=== PATIENT | female | born 1960 | race Caucasian/White ===

== ENCOUNTER → 2017-08-31 | Outpatient (CLI) | payer OTHER ==
[~2017-08-31] MED LIST: PRM625 PO; PROM25TA PO
[2017-08-31 10:08] LABS: BASO % 0.4 %; BASO ABS # 0.03 K/uL (0-0.2); EOS % 4.9 %; EOS ABS # 0.34 K/uL (0-0.5); HEMATOCRIT 37.6 % (37-47); HEMOGLOBIN 12.4 g/dL (12.0-16.0); IG# 0.01 K/uL (0.00-0.02); LYMPH % 40.2 %; MEAN CELL VOLUME 89.3 fL (80-100); MEAN CORPUSCULAR HEMOGLOBIN 29.5 pg (25-34); MEAN PLATELET VOLUME 10.2 fL (7.4-10.4); MONO % 5.5 %; MONO ABS # 0.38 K/uL (0.11-0.59); NEUT % 48.9 %; PLATELET COUNT 308 K/uL (130-400); RED CELL DISTRIBUTION WIDTH CV 13.8 % (11.5-14.5); RED CELL DISTRIBUTION WIDTH SD 45.2 fL (36.4-46.3); WHITE BLOOD COUNT 6.96 K/uL (4.8-10.8)
== END | disposition home or self-care (01) ==
LOC: C.LAB1850 09:06
PROVIDERS: ATTEND Nurse Practitioner Adult Health
DX: J45.909 Unspecified asthma, uncomplicated (principal); G25.81 Restless legs syndrome

== ENCOUNTER → 2017-10-04 | Outpatient (CLI) | payer OTHER ==
--- NOTE | 2017-10-04 09:24 | DIAGNOSTIC IMAGING REPORT ---
PELVIS/BILATERAL HIP 2 VIEWS CLINICAL HISTORY: 719.45,M25.551,M25.552 pain COMPARISON STUDY: None FINDINGS: Normal study. Hips are symmetric. No acute bony abnormality. Sacral foramina are symmetric. IMPRESSION: Normal study The above report was generated using voice recognition software. It may contain grammatical, syntax or spelling errors. Electronically signed by: Tone Oliva M.D. 10/04/2017 9:23 AM Dictated Date/Time: 10/04/2017 9:22 AM
[2017-10-04 09:53] LABS: BLOOD UREA NITROGEN 14 mg/dl (7-18); CALCIUM 8.7 mg/dl (8.5-10.1); CARBON DIOXIDE 28 mmol/L (21-32); CREATININE 0.81 mg/dl (0.60-1.20); GLUCOSE 88 mg/dl (70-99); SODIUM 137 mmol/L (136-145)
[2017-10-04 10:04] LABS: CHOLESTEROL 231 mg/dl (0-200); LDL CHOLESTEROL CALCULATED 142 mg/dl
== END | disposition home or self-care (01) ==
LOC: C.LAB1850 08:42
PROVIDERS: ATTEND Nurse Practitioner Adult Health
DX: M25.551 Pain in right hip (principal); M25.552 Pain in left hip

== ENCOUNTER → 2017-12-19 | Outpatient (CLI) | payer OTHER ==
--- NOTE | 2017-12-20 14:22 | MAMMOGRAPHY REPORT ---
BILATERAL DIGITAL SCREENING MAMMOGRAM TOMOSYNTHESIS WITH CAD: 12/19/2017 CLINICAL HISTORY: Routine screening. Patient has no complaints. TECHNIQUE: Breast tomosynthesis in addition to standard 2D mammography was performed. Current study was also evaluated with a Computer Aided Detection (CAD) system. COMPARISON: Comparison is made to exams dated: 05/12/2016 mammogram, 02/24/2014 mammogram, 02/20/2013 mammogram, 11/23/2010 mammogram - [facility], 02/17/2009, and 11/26/2004 mammogram - [facility]. BREAST COMPOSITION: The tissue of both breasts is almost entirely fatty. FINDINGS: The parenchymal pattern is unchanged. No developing mass, architectural distortion or clus ter of suspicious microcalcifications is seen in either breast. IMPRESSION: ACR BI-RADS CATEGORY 2: BENIGN There is no mammographic evidence of malignancy. A 1 year screening mammogram is recommended. The pa tient will receive written notification of the results. Approximately 10% of breast cancers are not detected with mammography. A negative mammographic report should not delay biopsy if a clinically suggestive mass is present. Dianne Naik M.D. ay/:12/19/2017 20:08:16 Log Processor Operator: Daylin HAYWOOD(Padilla)(Samuel), [facility] letter sent: Normal 1/2 BI-RADS Code: ACR BI-RADS Category 2: Benign
== END | disposition home or self-care (01) ==
LOC: C.MAMM 11:49
PROVIDERS: ATTEND Nurse Practitioner Adult Health
DX: Z12.31 Encounter for screening mammogram for malignant neoplasm of breast (principal)

== ENCOUNTER 2024-04-08 05:08 | Observation (INO) ==
--- NOTE | 2024-02-06 12:02 | PAT Medication Instructions ---
Medication Instructions Date of Service February 06, 2024 Home Medications Medication Instructions Recorded ipratropium 0.5 mg-albuterol 3 mg 3 ml inhalation Q6H PRN wheezing 12/22/20 (2.5 mg base)/3 mL nebulization #15 mL soln albuterol sulfate 90 mcg/actuation 2 puff inhalation QID PRN 12/23/20 aerosol inhaler (Ventolin HFA) shortness of breath or wheezing #2 Inhalers epinephrine 0.3 mg/0.3 mL injection, auto-injector 0.3 ml IM ONCE PRN ipratropium 0.5 mg-albuterol 3 mg (2.5 mg base)/3 mL nebulization soln 3 ml inhalation Q6H PRN albuterol sulfate 90 mcg/actuation aerosol inhaler (Ventolin HFA) 2 puff inhalation QID PRN acetaminophen 500 mg capsule 1,000 mg PO Q6H PRN ibuprofen 200 mg tablet 400 - 600 mg PO Q6H PRN metoprolol succinate 25 mg tablet,extended release 24 hr 25 mg PO HS prednisone 10 mg tablet 10 mg PO QAM Continue as directed epinephrine 0.3 mg/0.3 mL injection, auto-injector 0.3 ml IM ONCE PRN(if needed) ASK your surgeon for instructions ibuprofen 200 mg tablet 400 - 600 mg PO Q6H PRN Take morning of surgery With a small sip of water, OTHERWISE NOTHING TO EAT OR DRINK AFTER MIDNIGHT: ipratropium 0.5 mg-albuterol 3 mg (2.5 mg base)/3 mL nebulization soln 3 ml inhalation Q6H PRN(if needed) albuterol sulfate 90 mcg/actuation aerosol inhaler (Ventolin HFA) 2 puff inhalation QID PRN(use if needed; please bring with you to hospital day of surgery if possible) acetaminophen 500 mg capsule 1,000 mg PO Q6H PRN(if needed) prednisone 10 mg tablet 10 mg PO QAM Take evening before surgery ipratropium 0.5 mg-albuterol 3 mg (2.5 mg base)/3 mL nebulization soln 3 ml inhalation Q6H PRN(if needed) albuterol sulfate 90 mcg/actuation aerosol inhaler (Ventolin HFA) 2 puff inhalation QID PRN(if needed) acetaminophen 500 mg capsule 1,000 mg PO Q6H PRN(if needed) metoprolol succinate 25 mg tablet,extended release 24 hr 25 mg PO HS Other Notes If you have any questions please call us at [phone] or [phone] or [phone] or [phone]
--- NOTE | 2024-02-26 13:49 | Anesthesiology Consultation ---
Date of Service February 26, 2024 Assessment & Plan (1) Encounter for pre-operative examination: - Infectious disease screening: Per assessment on 02/26/24: No known recent infectious disease contacts or current infectious disease symptoms. - Outpatient joint assessment: Pt currently scheduled for inpatient pathway. If surgeon requests review for outpatient joint pathway, patient is not recommended candidate for outpatient joint program from anesthesia standpoint based on available information. 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 Family history of abdominal aortic aneurysm- no evidence of AAA per duplex.. Recommendations/Plan: Natural history and pathophysiology of paroxysmal supraventricular tachycardia discussed. Appropriate use of Valsalva maneuvers reviewed. Continue low-dose Toprol-XL. Instructed she may use an additional dose.. Role for EPS study and ablation reviewed." Chart Review Chart Review: Acceptable Risk for Surgery and Patient seen in Pre Admission Testing Teaching & Discussion Pre-Anesthesia Teaching/Discussion Notes: Instructed NPO after midnight before surgery,except medications with 15 cc of water. Medication instructions provided according to the PAT guidelines. History Surgery Operation Date: 03/18/24 12:00 Proposed Procedures p Right Anterior Total Hip Arthroplasty - Joselito Navarro, Height/Weight Height: 5 ft 3 in Weight: 104.8 kg Allergies Allergy/AdvReac Type Severity Reaction Status Date / Time cat dander Allergy Mild congestion Verified 02/05/24 14:58 house dust Allergy Mild congestion Verified 02/05/24 14:58 mold Allergy Mild congestion Verified 02/05/24 14:58 pollen extracts Allergy Mild congestion Verified 02/05/24 14:58 ragweed pollen Allergy Mild congestion Verified 02/05/24 14:58 trazodone AdvReac Mild nightmares Verified 02/05/24 14:58 BLUE CHEESE Allergy Intermediate asthma Uncoded 02/05/24 14:58 exacerbation Medications Home Medications Medication Instructions Recorded Confirmed Last Taken epinephrine 0.3 mg/0.3 mL 0.3 ml IM ONCE PRN anaphylaxis #1 03/22/19 02/05/24 Unknown injection, auto-injector ea ipratropium 0.5 mg-albuterol 3 mg 3 ml inhalation Q6H PRN wheezing 12/22/20 02/05/24 Unknown (2.5 mg base)/3 mL nebulization #15 mL soln albuterol sulfate 90 mcg/actuation 2 puff inhalation QID PRN 12/23/20 02/05/24 Unknown aerosol inhaler (Ventolin HFA) shortness of breath or wheezing #2 Inhalers acetaminophen 500 mg capsule 1,000 mg PO Q6H PRN Pain 02/05/24 02/05/24 Unknown ibuprofen 200 mg tablet 400 - 600 mg PO Q6H PRN Pain 02/05/24 02/05/24 Unknown metoprolol succinate 25 mg 25 mg PO HS 02/05/24 02/05/24 Unknown tablet,extended release 24 hr prednisone 10 mg tablet 10 mg PO QAM 02/05/24 02/05/24 Unknown Past Medical History Medical History Asthma Borderline high cholesterol No meds Told by PCP, "low" risk factors History of COVID-19 06/2020: no residual symptoms Insomnia Improved Obesity Osteoarthritis PSVT (paroxysmal supraventricular tachycardia) Controlled on beta alfonso Follows with [facility] cardio RLS (restless legs syndrome) No current meds Sleep apnea Per patient, told "borderline" findings and "could try device if she wanted" Unable to tolerate device Exercise / Class Metabolic Activity III < 4 Walking/Shop/Light housework Past Family History Family History Grandmother (Maternal) Bipolar disorder Aunt Bipolar disorder Brother Myocardial infarction Denies family history of Ovarian cancer Prostate cancer Colorectal cancer Past Surgical History Surgical History History of cardiac cath 2018- no stents History of section x2 History of colonoscopy History of hysterectomy History of toe surgery left great toe joint surgery Nausea and vomiting after administration of anesthetic agent [place] teeth removed Past Anesthesia History No Hx of Anesthesia Complications and No Family Hx of Anesthesia Complications History of PONV History of PONV and Hx of Motion Sickness Social History Smoking Status: Never smoker Do You Dip or Chew Tobacco: No Hx Alcohol Use: No substance use type: marijuana (years ago in college-occasional use) Review of Systems Occasional palpitations. Patient denies chest pain, shortness of breath, fever, chills, cough, wheezing. Physical Exam Vital Signs BP 101/64 P 79 TEMP 97.8 SP02 98%RA RESP 16 Physical Full cervical extension range of motion. Full TMJ range of motion. TMD 3 finger breaths Mallampati Score III Dentition: intact, + crown Lungs: clear throughout to auscultation Cardiac: regular rate and rhythm, no murmurs noted Spine: normal Carotid arteries: negative bruit Extremities: no LE edema Thick neck Lab Results Anesthesia Preop Results Results Anesthesia Widget: WBC 12.38 K/ul (4.8-10.8) H 02/26/24 Hgb 12.6 g/dl (12.0-16.0) 02/26/24 Hct 38.6 % (37.0-47.0) 02/26/24 Plt 325 K/uL (130-400) 02/26/24 Na 137 mmol/L (136-145) 02/26/24 K 3.9 mmol/L (3.5-5.1) 02/26/24 Cl 102 mmol/L (98-107) 02/26/24 CO2 28 mmol/L (21-32) 02/26/24 BUN 15 mg/dl (6-23) 02/26/24 Creat 0.75 mg/dl (0.6-1.2) 02/26/24 Glucose Level 101 mg/dl (70-99(Fasting)) H 02/26/24 PT 9.8 Seconds (9.0-12.0) 02/26/24 PTT 25 Seconds (21-31) 02/26/24 INR 0.9 (0.9-1.1) 02/26/24 Blood Type A Positive 02/26/24 Antibody Screen NEGATIVE 02/26/24 Testing Laboratory Results Elevated WBC- Surgeon's office made aware* Electrocardiogram Date: 02/26/24 SR with PACs at 75bpm. "Otherwise normal ECG" Chest X-Ray Date: 02/26/24 FINDINGS: Cardiac silhouette is normal. No pneumothorax, pleural effusion, airspace consolidation or pulmonary edema. Bones appear grossly intact. IMPRESSION: No acute process. Echocardiogram Date: 10/12/22 LVEF 55-59%. LV wall motion is normal. No significant valvular disease. Grade I DD. Cardiac Catheterization Date: 09/10/18 Impression: 1. No coronary artery disease. 2. False-positive stress echo. 3. No aortic stenosis. 4. Normal LVEDP. Plan: 1. Risk factor modification. 2. Follow-up with PCP to investigate noncardiac chest pain. 3. Can continue antianginals if they offer improved symptom control. Cannot rule out small vessel disease.
--- NOTE | 2024-04-04 07:15 | History & Physical Report ---
Date of Service April 04, 2024 Assessment & Plan (1) Osteoarthritis of right hip: We will proceed with a right anterior total of arthroplasty. Postoperatively she will be started on aspirin for DVT prophylaxis and kept overnight in the hospital for postop medical management. She plans to use energy physical therapy upon discharge. History of Present Illness Chief Complaint: Osteoarthritis of the right hip. Primary Care Provider: Mira OlivierDO Rosario is a pleasant 63-year-old female who has been dealing with chronic increasing right hip and groin pain. X-rays and MRI from [facility] have shown advanced osteoarthritis of the right hip. After failing extensive conservative treatment including injections, she has elected to proceed with a right total hip arthroplasty. Allergies Allergy/AdvReac Type Severity Reaction Status Date / Time cat dander Allergy Mild congestion Verified 02/05/24 14:58 house dust Allergy Mild congestion Verified 02/05/24 14:58 mold Allergy Mild congestion Verified 02/05/24 14:58 pollen extracts Allergy Mild congestion Verified 02/05/24 14:58 ragweed pollen Allergy Mild congestion Verified 02/05/24 14:58 trazodone AdvReac Mild nightmares Verified 02/05/24 14:58 BLUE CHEESE Allergy Intermediate asthma Uncoded 02/05/24 14:58 exacerbation Home Medications Medication Instructions Recorded Confirmed Type epinephrine 0.3 mg/0.3 mL 0.3 ml IM ONCE PRN anaphylaxis #1 03/22/19 02/05/24 History injection, auto-injector ea ipratropium 0.5 mg-albuterol 3 mg 3 ml inhalation Q6H PRN wheezing 12/22/20 02/05/24 Rx (2.5 mg base)/3 mL nebulization #15 mL soln albuterol sulfate 90 mcg/actuation 2 puff inhalation QID PRN 12/23/20 02/05/24 Rx aerosol inhaler (Ventolin HFA) shortness of breath or wheezing #2 Inhalers acetaminophen 500 mg capsule 1,000 mg PO Q6H PRN Pain 02/05/24 02/05/24 History ibuprofen 200 mg tablet 400 - 600 mg PO Q6H PRN Pain 02/05/24 02/05/24 History metoprolol succinate 25 mg 25 mg PO HS 02/05/24 02/05/24 History tablet,extended release 24 hr prednisone 10 mg tablet 10 mg PO QAM 02/05/24 02/05/24 History Past Med/Surg History Problem List (Updated 04/04/24 @ 07:14 by Joselito Navarro DO) Osteoarthritis of right hip Trochanteric bursitis, left hip Encounter for pre-operative examination Asthma (Acute) Hypercholesterolemia (Acute) Insomnia (Acute) Restless legs syndrome (Acute) Vitamin D deficiency (Acute) Medical History PSVT (paroxysmal supraventricular tachycardia) Controlled on beta alfonso Follows with [facility] Osteoarthritis Obesity Sleep apnea Per patient, told "borderline" findings and "could try device if she wanted" Unable to tolerate device RLS (restless legs syndrome) No current meds History of COVID-19 06/2020: no residual symptoms Insomnia Improved Borderline high cholesterol No meds Told by PCP, "low" risk factors Asthma Surgical History Nausea and vomiting after administration of anesthetic agent History of hysterectomy History of section x2 History of toe surgery left great toe joint surgery History of colonoscopy [place] teeth removed History of cardiac cath 2019- no stents Family History Grandmother (Maternal) Bipolar disorder Aunt Bipolar disorder Brother Myocardial infarction Denies family history of Ovarian cancer Prostate cancer Colorectal cancer Social History Smoking Status: Never smoker Second Hand Exposure: Yes ( A CHILD); Do You Dip or Chew Tobacco: No; Tobacco Cessation Education Requested by Patient: No Hx Alcohol Use: No Preferred Language: Maltese Communication Ability: Effective Visual Impairment: No Limitations Hearing Ability: Normal Marine Electronics Technician Required: No Beliefs That Will Affect Care: None marital status: Current Living Situation: Spouse current occupational status: employed current occupation: [employer] Other Information That Helps Us Care for You: No Feels Safe at Home: Yes Safety Concerns: Feels Safe At This Time Dental Care, Regularly: Yes Physical Activity Frequency: 3-4 Times per Week Assistive Devices: None Review of Systems All systems reviewed & are unremarkable except as noted in HPI & below. Physical Exam On physical examination of the right hip, she has decreased range of motion. She has pain with internal/external rotation. All of her pain is located in the groin.. Constitutional WD/WN, vitals as above Eyes PERRL, conjunctivae normal, anicteric sclerae ENMT external ear and nose normal, oropharynx normal Neck trachea midline, no thyromegaly Respiratory normal respiratory effort Cardiovascular RRR, no murmur, no edema Gastrointestinal (Abdomen) normal bowel sounds, soft, nontender, no hepatosplenomegaly Psychiatric A+Ox3, euthymic affect Results & Data Results & Data Laboratory Results . Diagnostic Findings X-rays of the right hip show advanced osteoarthritis with joint space narrowing, osteophyte formation, and [id number] articulation. PG Care Time/CCT Total # of Minutes Spent Total Time Spent with Patient: Total time spent is greater than 50% in coordination of care (as documented) at patient's floor/unit and/or counseling patient: Coding Level of Care Code None Diagnoses Osteoarthritis of right hip M16.11
[2024-04-08] MEDS: LR 60ML/HR IV SCH (05:54)
[2024-04-08] MEDS: LR 500ML BOLUS, THEN 15ML/HR IV SCH (05:54)
[2024-04-08] MEDS: FAMOTIDINE 20 MG TAB PO SCH (05:55)
[2024-04-08] MEDS: ACETAMINOPHEN 500 MG TAB PO SCH ×2 (05:55→14:26)
[2024-04-08] MEDS: dexAMETHasone**PF** 10 MG/ML VIAL IV SCH (05:55)
[2024-04-08] MEDS: GABAPENTIN 300 MG CAP PO SCH (05:55)
[2024-04-08] MEDS ORDERED: BUPIVACAINE 0.5 % 5 MG/1 ML PF 10ML VIAL ONE (06:19)
--- NOTE | 2024-04-08 06:26 | History & Physical Bridge Note ---
Date of Service April 08, 2024 History & Physical Bridge Note I have examined the patient, reviewed the History & Physical and in the interval since the performance of the History & Physical I have noted the following changes of clinical significance: no changes noted
[2024-04-08] MEDS ORDERED: MIDAZOLAM HCL 1 MG/ML 2ML VIAL ONE (06:42)
[2024-04-08] MEDS ORDERED: fentaNYL citrate PF 100 MCG/2 ML VIAL ONE (06:42)
[2024-04-08] MEDS ORDERED: LIDOCAINE 2% 2 ML VIAL/AMP(20MG/ML) INFIL ONE (06:45)
[2024-04-08] MEDS ORDERED: PROPOFOL IV EMULSION 10 MG/ML 20 ML VIAL IV ONE (06:45)
[2024-04-08] MEDS: TRANEXAMIC ACID 1,000 MG **IV Pre-op IV SCH (06:50)
[2024-04-08] MEDS ORDERED: ATROPINE SULFATE 0.1 MG/ML 10ML SYR IV PRN (06:57)
[2024-04-08] MEDS ORDERED: ePHEDrine sulfate 50 MG/ML AMP IV PRN (06:57)
[2024-04-08] MEDS ORDERED: ONDANSETRON INJ 2 MG/ML 2 ML VIAL IV PRN ×2 (06:57→10:09)
[2024-04-08] MEDS ORDERED: PROMETHAZINE HCL 6.25 MG in SODIUM CHLORIDE 0.9% 50 ML IV PRN (06:57)
[2024-04-08] MEDS ORDERED: fentaNYL citrate PF 100 MCG/2 ML VIAL IV PRN (06:57)
[2024-04-08] MEDS: ceFAZolin 2000MG 2,000 MG/15 ML SYR IV SCH ×2 (07:00→14:27)
[2024-04-08] MEDS ORDERED: ONDANSETRON INJ 2 MG/ML 2 ML VIAL ONE (07:19)
[2024-04-08] MEDS: ORTHO JOINT ANESTHETIC ONE (07:28)
[2024-04-08] MEDS ORDERED: PHENYLEPHRINE 100MCG/ML 10ML SYR IV ONE (07:32)
[2024-04-08] MEDS ORDERED: ePHEDrine sulfate 50 MG/ML AMP ONE (07:32)
[2024-04-08] MEDS: ROPIV 0.5% 246mg, Ketorolac 30mg, EPINEPHrine 0.5mg in NSS INFIL SCH (07:41)
--- NOTE | 2024-04-08 08:06 | Operative Report ---
PG Post Operative Report Pre & Post Diagnosis Operation Date: 04/08/24 07:00 Pre-Op Diagnosis: Degenerative Joint Disease Right Hip Post-Op Diagnosis: Degenerative Joint Disease Right Hip I identified the patient and participated in the time-out.: Yes Procedure Operation Date: 04/08/24 07:00 Actual Procedures p Right Anterior Total Hip Arthroplasty(Right) - Joselito Navarro DO Surgeon Joselito Navarro DO Chip Mixing Machine Operator Joseilto Ramirez PA-C Estimated Blood Loss 300 Findings Consistent with Post-Op Diagnosis Specimens Right femoral head Description of Procedure Implants used I used a ZimmerBiomet total hip arthroplasty system with a size 0 standard offset Avenir Complete stem, a 46 mm G7 cup with a 25mm screw, an E1 polyet hylene liner, a 32 mm ceramic head with a +3.5 neck. Marlene arrived at the hospital for the above procedure. She was seen in the preoperative holding area and the operative extremity was identified and signed. She was given a spinal anesthetic, a preoperative antibiotic, and TXA. She was then taken back to the operating room and laid on the table in the supine position. She was given basic sedation. The operative leg was secured to a Puristst leg positioner. The hip was then prepped and draped in sterile fashion. A timeout was done and the patient and the operative extremity was properly identified. An anterior approach was used. Dissection was taken down through the fascia and the tensor muscle belly was retracted laterally and the rectus was retracted medially. The circumflex vessels were identified and ligated. The capsule was then incised and tagged for later repair. The femoral neck was then cut and the femoral head was removed. The acetabulum was exposed. Time was spent doing a complete circumferential labral release. Sequential reaming of the acetabulum up to a size 45 reamer was done. Final reamings were done under fluoroscopy to ensure appropriate version. A Biomet 46 mm G7 cup was then impacted into place. A single 25 mm screw was placed. The E1 polyethylene liner was then snapped into place. Surrounding soft tissues were then injected with 100 cc of an orthopedic pain control cocktail. The proximal femur was then exposed. Sequential broaching up to a size 0 broach was done. Off that broach a size 32 head with a +3.5 neck was trialed. The hip was reduced and fluoroscopic images showed anatomic alignment of the implants in acceptable length. The broach was removed. The final size 0 standard offset Avenir Complete stem was then impacted into place. A ceramic 32 mm head with a +3.5 neck was then impacted onto the stem and the hip was reduced. Final fluoroscopic images showed anatomic alignment of the hip. The capsule was then closed with #1 Vicryl suture. A dilute betadyne lavage was then done for 3 minutes. The joint was then irrigated with normal saline solution. The fascia was closed with #1 PDS suture. Skin was closed with 2-0 Vicryl, jessa, and a Silverlon dressing. She was then transferred to a hospital bed and taken to the post anesthesia care unit in stable condition. She tolerated the procedure well. Joselito Ramirez PA-C, was present for the entire procedure. He was critical for patient positioning, prepping, draping, retraction exposure, wound closure and application of sterile dressing. I attest to the content of the Intraoperative Record and any orders documented therein. Any exceptions are noted below.
[2024-04-08] MEDS: TRANEXAMIC ACID 1,000 MG **IV Intra-op IV SCH (08:07)
--- NOTE | 2024-04-08 08:40 | Anesthesiology Progress Note ---
Date of Service April 08, 2024 Anesthesia Post Procedure Vital Signs Vital Signs: Temp Pulse Pulse Resp BP Pulse Ox O2 Del Method 04/08/24 08:31 36.4 C L 86 16 130/79 100 Oxymask 04/08/24 05:39 36.8 C 73 20 149/88 H 98 Room Air O2 Flow Rate 04/08/24 08:31 10 04/08/24 05:39 Transfer of Care Handoff Completed per policy Notes Mental Status: alert / awake / arousable Patient Amnestic to Procedure: Yes Nausea / Vomiting: adequately controlled Pain: adequately controlled Airway Patency, RR, SpO2: stable & adequate BP & HR: stable & adequate Hydration State: stable & adequate Neuraxial Anesthesia: was administered and sensory block is resolving Anesthetic Complications: no major complications apparent and Pt Satisfied with anesthetic care
--- NOTE | 2024-04-08 08:57 | Fluoroscopy Report ---
INTRAOPERATIVE RADIOGRAPH CLINICAL HISTORY: Right hip arthroplasty. Fluoro time: 18 seconds Ka,r: 4.02 mGy FINDINGS: A single spot fluoroscopic view of the right hip is presented. A bipolar right hip arthropl asty is in near anatomic alignment. There is no evidence of acute fracture on this fluoroscopic view. IMPRESSION: Intraoperative image from a right hip arthroplasty procedure as above. Electronically signed by: José Miguel Chowdary M.D. 04/08/2024 8:56 AM
--- NOTE | 2024-04-08 09:46 | XRay Report ---
SINGLE VIEW PELVIS; SINGLE VIEW RIGHT HIP CLINICAL HISTORY: Postoperative examination. FINDINGS: An AP portable view of the hips and pelvis with a crosstable lateral portable view of the r ight hip are compared to study dated 01/10/2024. A bipolar right hip arthroplasty is in near-anatomic alignment. No acute fracture is identified. There are expected postoperative changes overlying the r ight hip including skin clips, subcutaneous gas, and soft tissue swelling. There is degenerative scle rosis in the sacroiliac joints and pubic symphysis. Small phleboliths are noted in the pelvis. IMPRESSION: Expected postoperative findings status post right hip arthroplasty. No acute fracture is seen. ACT 112: Negative or not required by law. Electronically signed by: José Miguel Chowdary M.D. 04/08/2024 9:45 AM
[2024-04-08] MEDS ORDERED: HYDROmorphone INJ 0.5 MG/0.5 ML SYR IV PRN (10:09)
[2024-04-08] MEDS ORDERED: ALBUTEROL HFA 8 GM INHALER INH PRN (10:09)
[2024-04-08] MEDS ORDERED: EPINEPHrine ADULT AUTO-INJECT 0.3 MG SYR IM PRN (10:09)
[2024-04-08] MEDS ORDERED: ALBUT/IPRATROP 3MG/0.5MG NEB 3 ML VIAL INH PRN (10:09)
[2024-04-08] MEDS ORDERED: bisacodyL 10 MG SUPP PR PRN (10:09)
[2024-04-08] MEDS ORDERED: MAGNESIUM HYDROXIDE SUSP 30 ML UDC PO PRN (10:09)
[2024-04-08] MEDS ORDERED: METOCLOPRAMIDE HCL INJ 5 MG/ML 2 ML VIAL IV PRN (10:09)
[2024-04-08] MEDS ORDERED: NALOXONE HCL 0.4 MG/1 ML VIAL/CARP IV PRN (10:09)
[2024-04-08] MEDS: oxyCODONE HCL IR 5 MG TAB (IMMEDIATE RELEASE) PO PRN (10:24)
[2024-04-08] MEDS: SODIUM CHLORIDE 0.9% 1,000 ML IV SCH (10:25)
[2024-04-08] MEDS ORDERED: EPINEPHrine INJ 1 MG/ML AMP IM PRN (10:29)
[2024-04-08] MEDS: DOCUSATE SODIUM 100 MG CAP PO SCH (12:18)
[2024-04-08] MEDS: ASPIRIN 81 MG ECTAB PO SCH (12:19)
[2024-04-08] MEDS: MULTIVITAMIN TAB PO SCH (12:19)
[2024-04-08] MEDS: predniSONE 10 MG TABLET PO SCH (12:19)
[2024-04-08] MEDS: KETOROLAC TROMETHAMINE 15 MG/ML VIAL IV SCH (12:19)
[2024-04-08] MEDS: SENNA 8.6 MG TAB PO SCH (19:54)
[2024-04-08] MEDS: METOPROLOL SUCC 25MG EXT REL TAB PO SCH (20:53)
[2024-04-09 03:00] VITALS: TEMP 97.7; O2SAT 100
--- NOTE | 2024-04-09 07:11 | Orthopedic Progress Note ---
Date of Service April 09, 2024 Assessment & Plan (1) Status post right hip replacement: Overall she is doing very well. She is not having much pain in the right hip. She will be seen by physical therapy today for ambulation and range of motion exercises. She is on aspirin for DVT prophylaxis. She can be discharged to home later today. She will follow-up orthopedics in 2 weeks. Keon Rosario was seen and examined at bedside this morning. Overall she is doing very well. She is not having much pain in the right hip. She has been up and ambulating to the bathroom. She has no complaints.. Review of Systems All systems reviewed & are unremarkable except as noted in HPI & below. Physical Exam On physical examination of the right hip, the dressing is clean and dry. Her leg is out full extension. She has active dorsiflexion plantarflexion of the right ankle.. Results & Data Results & Data Laboratory Results . Diagnostic Findings Postoperative x-rays of the right hip show the prosthesis to be in anatomic alignment without any evidence of fracture, his cage, or loosening.. PG Care Time/CCT Total # of Minutes Spent Total Time Spent with Patient: Total time spent is greater than 50% in coordination of care (as documented) at patient's floor/unit and/or counseling patient: Coding Level of Care Code 38760 Post Operative Follow-Up Diagnoses Status post right hip replacement Z96.641
--- NOTE | 2024-04-09 07:12 | Discharge Summary ---
Date of Service April 09, 2024 Admission HPI (Per Admitting) Marlene is a pleasant 63-year-old female who has been dealing with chronic increasing right hip and groin pain. X-rays and MRI from [facility] have shown advanced osteoarthritis of the right hip. After failing extensive conservative treatment including injections, she has elected to proceed with a right total hip arthroplasty. Admission Exam (Per Admitting) On physical examination of the right hip, she has decreased range of motion. She has pain with internal/external rotation. All of her pain is located in the groin.. Principal Diagnosis Same as "Discharge Diagnosis" noted below under Discharge Instructions. Discharge Exam On physical examination of the right hip, the dressing is clean and dry. Her leg is out full extension. She has active dorsiflexion plantarflexion of the right ankle.. Discharge Data Procedures Performed Operation Date: 04/08/24 07:00 Actual Procedures p Right Anterior Total Hip Arthroplasty(Right) - Joselito Navarro DO Ordered Studies 04/08/24 07:00 FL hip RT 1V Routine Hospital Course (1) Status post right hip replacement: On April 08, 2024 Marlene arrived at [facility] and underwent a right hip replacement without complication. She had a spinal anesthetic. Postoperatively she was started on aspirin for DVT prophylaxis and transferred to the general orthopedic floors. Her hospital course was uneventful. On postop day #1, her vital signs were stable and her pain was well-controlled. She was able to participate well with physical therapy doing ambulation and range of motion exercises. She was then discharged to home. She will follow with orthopedics in 2 weeks. PG Care Time/CCT Total # of Minutes Spent Total Time Spent with Patient: Total time spent is greater than 50% in coordination of care (as documented) at patient's floor/unit and/or counseling patient: Discharge Plan Discharge Items Patient Disposition: Home - Self-Care Reason For Visit: Degenerative Joint Disease Right Hip Discharge Diagnosis: Status post right hip replacement Activity: As commented below Non-emergency contact: Surgeon Call non-emergency contact if: your wound has increased redness and your wound has increased drainage Follow-up/Referrals: Mira Olivier DO [Primary Care Provider] - Diet: Regular Addtl Attending Provider Instructions: Activity and Therapy Recommendations: * If you are using [facility] then therapy will be provided at your home until they feel you have accomplished all of your goals. * If you are using [facility] then Physical Therapy will be provided until they feel you are ready to start Outpatient Physical Therapy. * If you are not using home therapy then Outpatient Physical Therapy should start about 3-5 days from your day of surgery. Therapy will last about 6-10 weeks * You were shown a series of exercises in the hospital. Do these exercises three times each day including the exercises you were shown in physical therapy. * Get up and walk several times each day.~ For the first four weeks, try not to stand or walk for more than one hour at a time. If you do stand or walk for more than one hour, you will not hurt anything, but your leg will likely swell.~~ * As you feel comfortable, you may change from the walker or crutches to a cane and~then to independent walking. Medications: * Narcotic You will likely be sent home from the hospital with a prescription for the narcotic pain medication that worked best throughout your stay. * Cefadroxil -take the antibiotic twice a day for 10 days to help prevent infection. * Aspirin Most patients will be required to take Aspirin 81mg twice a day for 6 weeks after surgery. This is obtained [id number] and a prescription is not necessary. * Other medications may be prescribed for specific circumstances. If you have any questions, please call the office at . * Resume previous home medications unless otherwise instructed TEDs/Elastic Stockings: The white elastic stockings help limit swelling and prevent blood clots from forming in your legs. The more you wear them, the more they work. Wear them for six weeks. Dressing Care: Leave the Silverlon dressing in place for 7 days. After 7 days you may remove the dressing. If the incision is not draining then you may leave the jessa open to air. If there is a little bit of drainage or if the jessa are getting stuck on your clothing then cover the incision with a dry dressing. The jessa will be removed at your 2 week follow-up appointment. Showering: You may shower with the Silverlon dressing in place. Do not let the shower spray hit the dressing directly. Pat the Silverlon dressing dry. If the dressing becomes wet underneath, then simply remove the dressing. Keep the incision dry until you are 7 days out from the day of surgery. After 7 days you may remove the Silverlon dressing and shower with the jessa exposed. Let soapy water run over the jessa and pat them dry. Do not scrub or soak the incision. Things To Watch For: * Drainage from the incision site that occurs more than one week after your surgery. * Increased redness at the incision site. * Fever above 102 degrees Fahrenheit. * Unusual chest pain or shortness of breath. * Call [facility] at with any of the above problems Follow-Up Visit: Follow-up with Dr. Navarro's PA (Joselito Ramirez) 2-3 weeks after your day of surgery. He will remove your jessa and answer any questions. If you have any additional questions or concerns, Dr Navarro is usually in the office at the same time and will be available An appointment was probably scheduled when you signed-up for surgery in the office. If you have any questions call Office Instructions: More detailed instructions as well as Frequently Asked Questions were provided in a folder by our office when you signed-up for surgery. Please review these instructions when you get home. If you have any further questions or concerns, please feel free to call the office at [phone] Pending Studies at Discharge: No Stand-Alone Forms: My [facility], Smoking Cessation Medications and DC Order Prescriptions: New oxycodone 5 mg Tablet 5 mg PO Q4H PRN (Reason: pain) Qty: 20 0RF cefadroxil 500 mg capsule 500 mg PO BID 10 Days Qty: 20 0RF aspirin 81 mg Tablet,Delayed Release (Dr/Ec) 81 mg PO BID 42 Days Qty: 0 0RF Continued ipratropium-albuterol 0.5 mg-3 mg(2.5 mg base)/3 mL solution for nebulization 3 ml inhalation Q6H PRN (Reason: wheezing) Qty: 15 2RF Patient Comments: very seasonal albuterol sulfate [Ventolin HFA] 90 mcg/actuation HFA aerosol inhaler 2 puff INHALATION QID PRN (Reason: shortness of breath or wheezing) Qty: 2 5RF epinephrine 0.3 mg/0.3 mL auto-injector 0.3 ml IM ONCE PRN (Reason: anaphylaxis) Qty: 1 Patient Comments: only w/blue cheese prednisone 10 mg tablet 10 mg PO QAM ibuprofen 200 mg Tablet 400 - 600 mg PO Q6H PRN (Reason: Pain) Patient Comments: takes 2-3x daily metoprolol succinate 25 mg tablet extended release 24 hr 25 mg PO HS acetaminophen 500 mg Capsule 1,000 mg PO Q6H PRN (Reason: Pain) Patient Comments: takes 2-3x daily Admission Data Admit Date/Time: 04/08/24 08:30 Attending Provider: Joselito Navarro Admit Provider: Joselito Navarro Primary Care Provider: Mira Olivier
[2024-04-09 07:35] VITALS: BP 122/66; PULSE 55; RESP 17
== END 2024-04-09 11:30 | disposition home or self-care (01) ==
LOC: ASU 05:08 → 3E 05:08